=== PATIENT | female | born 1975 | race Caucasian/White ===

== ENCOUNTER 2016-07-07 13:15 | Emergency (ER) | payer OTHER ==
[~2016-07-07] VITALS: Ht 165.1 cm; Wt 82.0 kg
[~2016-07-07 13:15] MED LIST: FRRS300 PO; IBUP-1050 PO
[2016-07-07 13:20] VITALS: TEMP 37.2; Ht 165.1 cm; Wt 82.0 kg
[2016-07-07] MEDS ORDERED: FERR1TAB13 PO (13:52)
[2016-07-07] MEDS ORDERED: MULTTAB58 PO (13:52)
[2016-07-07] MEDS ORDERED: ASPI325T39 PO (13:52)
[2016-07-07 14:38] LABS: ALT/SGPT 24 U/L (12-78); BLOOD UREA NITROGEN 9 mg/dl (7-18); BUN/CREATININE RATIO 9.5 (10-20); CALCIUM 9.5 mg/dl (8.5-10.1); CARBON DIOXIDE 24 mmol/L (21-32); CHLORIDE 108 mmol/L (98-107); CREATININE 0.92 mg/dl (0.60-1.20); GLUCOSE 87 mg/dl (70-99); MAGNESIUM 2.5 mg/dl (1.8-2.4); POTASSIUM 3.9 mmol/L (3.5-5.1); SODIUM 142 mmol/L (136-145)
[2016-07-07 14:48] LABS: ALKALINE PHOSPHATASE 65 U/L (45-117); AST/SGOT 10 U/L (15-37)
--- NOTE | 2016-07-07 14:57 | DIAGNOSTIC IMAGING REPORT ---
TWO VIEW CHEST CLINICAL HISTORY: Palpitations. FINDINGS: PA and lateral chest radiographs are obtained. No prior studies are available for comparison at the time of dictation. The cardiomediastinal silhouette is unremarkable. The lungs and pleural spaces are clear. There is no pneumothorax. The bony thorax appears intact. IMPRESSION: No active disease in the chest. Electronically signed by: Ilya Bello M.D. 07/07/2016 2:55 PM Dictated Date/Time: 07/07/2016 2:55 PM
[2016-07-07 15:38] VITALS: O2SAT 100
[2016-07-07 15:50] LABS: BASO % 0.2 %; BASO ABS # 0.02 K/uL (0-0.2); COMPLETE YES; EOS % 1.8 %; HEMATOCRIT 36.3 % (37-47); IG% 0.2 %; LYMPH % 18.6 %; LYMPH ABS # 2.04 K/uL (1.2-3.4); MEAN CORPUSCULAR HEMOGLOBIN 29.9 pg (25-34); MEAN CORPUSCULAR HGB CONC 33.6 g/dl (32-36); MEAN PLATELET VOLUME 10.2 fL (7.4-10.4); MONO % 6.3 %; NEUT % 72.9 %; PLATELET COUNT 417 K/uL (130-400); RED BLOOD COUNT 4.08 M/uL (4.2-5.4); WHITE BLOOD COUNT 10.95 K/uL (4.8-10.8)
[2016-07-07 17:30] VITALS: BP 117/66; PULSE 62; O2SAT 98
--- NOTE | 2016-07-07 19:10 | EMERGENCY ROOM VISIT NOTE ---
History Report prepared by Debbie: Shanae Lynne Under the Supervision of: Dr. Gerry Syed D.O. First contact with patient: 13:52 Chief Complaint: PALPITATIONS Stated Complaint: PALPITATIONS Nursing Triage Summary: pt c/o palpatations started at 1150 this am. denies any chest pain ,sob. feels lightheaded ,cold sweats, feels hot right now History of Present Illness The patient is a 41 year old female who presents to the Emergency Room with complaints of an episode of heart palpitations which occurred at 1150 this morning. She reports that she was at work, sitting at her desk, when her heart started to race. She could feel her pulse in her neck. She checked her heart rate which was 155. This lasted for about 3-4 minutes. She had never experienced this before and she was scared. As she was driving 10 minutes later , it happened again, but it was less severe and she was able to keep driving. She reports that she could feel her pulse and had cold sweats. She denies any rhinorrhea, cough, hemoptysis, congestion, SOB, chest pain, abdominal pain, nausea, vomiting, diarrhea, or weakness or numbness in the extremities. She describes feel generally weak, as though she were going to pass out. She denies any recent travel, hemoptysis, previous clots, estrogen use, history of cancer, or swelling in legs. Source of History: patient Onset: 1150 this morning Position: other (global) Quality: other (palpitations) Timing: other (episodic) Associated Symptoms: No SOB, No abdominal pain, No chest pain, No cough, No diarrhea, No nausea, No numbness, No vomiting, No weakness Note: Pt reports cold sweats. Pt denies rhinorrhea, hemoptysis, congestion. Review of Systems See HPI for pertinent positives & negatives. A total of 10 systems reviewed and were otherwise negative. Past Medical & Surgical Medical Problems: (1) No Known Active Medical Problems Family History Patient reports no known family medical history. Social History Smoking Status: Current Every Day Smoker Alcohol Use: none Drug Use: none Marital Status: single Occupation Status: employed Current/Historical Medications Scheduled Ferrous Sulfate (Kp Ferrous Sulfate), 325 MG PO DAILY Multiple Vitamin (Multivitamin), 1 TAB PO DAILY Scheduled PRN Aspirin (Aspirin Ec), 325 MG PO PRN PRN for Pain Allergies Coded Allergies: No Known Allergies (Verified Allergy, NONE, 02/01/09) Physical Exam Vital Signs Date Time Temp Pulse Resp B/P Pulse Ox O2 Delivery O2 Flow Rate FiO2 07/07/16 17:30 62 16 117/66 98 Room Air 07/07/16 17:27 68 07/07/16 15:38 100 Room Air 07/07/16 15:38 69 16 115/63 100 Room Air 07/07/16 14:29 71 07/07/16 14:16 88 18 130/72 Room Air 07/07/16 13:20 37.2 74 18 120/79 100 Room Air Physical Exam GENERAL: Sitting up in bed, anxious, no distress, non-toxic EYE EXAM: normal conjunctiva OROPHARYNX: no exudate, no erythema, lips, buccal mucosa, and tongue normal and mucous membranes are moist NECK: supple, no nuchal rigidity, no adenopathy, non-tender LUNGS: Clear to auscultation. Normal chest wall mechanics HEART: no murmurs, S1 normal and S2 normal ABDOMEN: abdomen soft, non-tender, normo-active bowel sounds, no masses, no rebound or guarding. BACK: Back is symmetrical on inspection and there is no deformity, no midline tenderness, no CVA tenderness. SKIN: no rashes and no bruising UPPER EXTREMITIES: upper extremities are grossly normal. LOWER EXTREMITIES: No pitting edema. Calves equal bilaterally. NEURO EXAM: Normal sensorium, cranial nerves II-XII intact, normal speech, no weakness of arms, no weakness of legs. Medical Decision & Procedures ER Provider Diagnostic Interpretation: Xray results per the radiologist and my interpretation. TWO VIEW CHEST CLINICAL HISTORY: Palpitations. FINDINGS: PA and lateral chest radiographs are obtained. No prior studies are available for comparison at the time of dictation. The cardiomediastinal silhouette is unremarkable. The lungs and pleural spaces are clear. There is no pneumothorax. The bony thorax appears intact. IMPRESSION: No active disease in the chest. Electronically signed by: Ilya Bello M.D. 07/07/2016 2:55 PM Dictated Date/Time: 07/07/2016 2:55 PM Laboratory Results 07/07/16 14:05 Red Blood Count 4.08, Mean Corpuscular Volume 89.0, Mean Corpuscular Hemoglobin 29.9, Mean Corpuscular Hemoglobin Concent 33.6, Mean Platelet Volume 10.2, Neutrophils (%) (Auto) 72.9, Lymphocytes (%) (Auto) 18.6, Monocytes (%) (Auto) 6.3, Eosinophils (%) (Auto) 1.8, Basophils (%) (Auto) 0.2, Neutrophils # (Auto) 7.98, Lymphocytes # (Auto) 2.04, Monocytes # (Auto) 0.69, Eosinophils # (Auto) 0.20, Basophils # (Auto) 0.02 07/07/16 14:05 Test 07/07/16 14:05 07/07/16 16:10 White Blood Count 10.95 K/uL (4.8-10.8) Red Blood Count 4.08 M/uL (4.2-5.4) Hemoglobin 12.2 g/dL (12.0-16.0) Hematocrit 36.3 % (37-47) Mean Corpuscular Volume 89.0 fL (80-100) Mean Corpuscular Hemoglobin 29.9 pg (25-34) Mean Corpuscular Hemoglobin Concent 33.6 g/dl (32-36) Platelet Count 417 K/uL (130-400) Mean Platelet Volume 10.2 fL (7.4-10.4) Neutrophils (%) (Auto) 72.9 % Lymphocytes (%) (Auto) 18.6 % Monocytes (%) (Auto) 6.3 % Eosinophils (%) (Auto) 1.8 % Basophils (%) (Auto) 0.2 % Neutrophils # (Auto) 7.98 K/uL (1.4-6.5) Lymphocytes # (Auto) 2.04 K/uL (1.2-3.4) Monocytes # (Auto) 0.69 K/uL (0.11-0.59) Eosinophils # (Auto) 0.20 K/uL (0-0.5) Basophils # (Auto) 0.02 K/uL (0-0.2) RDW Standard Deviation 49.5 fL (36.4-46.3) RDW Coefficient of Variation 15.4 % (11.5-14.5) Immature Granulocyte % (Auto) 0.2 % Immature Granulocyte # (Auto) 0.02 K/uL (0.00-0.02) D-Dimer 290 ug/L FEU (0-500) Anion Gap 10.0 mmol/L (3-11) Est Creatinine Clear Calc Drug Dose 85.1 ml/min Estimated GFR () 89.6 Estimated GFR (Non- 77.3 BUN/Creatinine Ratio 9.5 (10-20) Calcium Level 9.5 mg/dl (8.5-10.1) Magnesium Level 2.5 mg/dl (1.8-2.4) Total Bilirubin 0.3 mg/dl (0.2-1) Direct Bilirubin < 0.1 mg/dl (0-0.2) Aspartate Amino Transf (AST/SGOT) 10 U/L (15-37) Alanine Aminotransferase (ALT/SGPT) 24 U/L (12-78) Alkaline Phosphatase 65 U/L (45-117) Total Protein 8.1 gm/dl (6.4-8.2) Albumin 4.2 gm/dl (3.4-5.0) Thyroid Stimulating Hormone (TSH) 2.260 uIu/ml (0.300-4.500) Troponin I < 0.015 ng/ml (0-0.045) Laboratory results per my review. ECG Indication: palpitations Rate (beats per minute): 69 Rhythm: sinus rhythm Findings: no ectopy, other (normal axis) ED Course ED COURSE: Vital signs were reviewed and showed normal vitals. The patients medical record was reviewed The above diagnostic studies were performed and reviewed. ED treatments and interventions as stated above. 1404: The patient was evaluated in room B4. A complete history and physical examination was performed. 1724: Upon reevaluation, the patient is doing well.I discussed my findings with the patient and she understands and agrees with the treatment plan. Based on the patients age, coexisting illnesses, exam and lab findings the decision to treat as an outpatient was made. The patient remained stable while under my care. The patient appeared well at the time of discharge. Medical Decision Differential diagnoses includes but is not limited to acute coronary syndrome, myocardial infarction, pericarditis, pulmonary embolus, aortic dissection, pneumonia, pneumothorax, musculoskeletal, shingles, esophageal. Patient is a 41-year-old female who presents the ER for palpitations. She notes that she felt her heart racing 2 separate occasions say. She denies any chest pain or shortness of breath. She notes that did feel regular. She has never had this before. She denies any drugs or alcohol. No history of thyroid issues. Calves are equal bilateral. Troponins are negative 2. EKG was unremarkable. D-dimer was negative. She is at a low risk for PE. D-dimer was negative. TSH was normal. Chest x-ray was unremarkable. Hemoglobin was unremarkable. BMP along with LFTs, bilirubin and lipase is unremarkable. Patient was updated at bedside. Showed no evidence of arrhythmia while in the ER. Based on her age I do not believe that this would be an ischemic rhythm. She has no history of diabetes, hypertension, hyperlipidemia, CAD or sudden in the family at a early age. Patient was discharged to follow with PCP for possible Holter monitor. Discussed with Pt concerning signs and symptoms to watch out for. Pt was instructed to follow up with their PCP and discussed with the patient their option to return to the ED at anytime for persistent or worsening symptoms. The appropriate anticipatory guidance and out-patient management, including indications for return to the emergency department, were explained at length to the patient and understood. Impression Primary Impression: Heart palpitations Scribe Attestation The scribe's documentation has been prepared under my direction and personally reviewed by me in its entirety. I confirm that the note above accurately reflects all work, treatment, procedures, and medical decision making performed by me. Departure Information Dispostion Home / Self-Care Referrals No Doctor, Assigned (PCP) Forms HOME CARE DOCUMENTATION FORM, IMPORTANT VISIT INFORMATION, WORK / SCHOOL INSTRUCTIONS Patient Instructions ED Palpitations, My [facility] Additional Instructions Please follow up with your primary care doctor with in the next 24 hours. Any worsening of your symptoms, please return to the ED immediately. This includes recurrence of palpitations, passing out, chest pain, shortness of breath, or any other concerning signs or symptoms from your standpoint. You should follow up with your primary care doctor within the next 3 days but have a Holter monitor placed.
== END 2016-07-07 17:37 | disposition home or self-care (01) ==
LOC: EDBD 13:15 → C.EDB 13:16
DX: R00.2 Palpitations (principal); F17.200 Nicotine dependence, unspecified, uncomplicated